=== PATIENT | male | born 1955 | race Caucasian/White ===

== ENCOUNTER 2017-02-08 08:05 | Emergency (ER) | payer OTHER ==
[~2017-02-08] VITALS: Ht 185.4 cm; Wt 125.0 kg
[~2017-02-08 08:05] MED LIST: ACTOPLUS MET PO; ACTOPLUS MET1 TABLE1 PO; ACTOPLUS MET1 TABLET PO; ACTOS15 MG PO; AMARYL1 MG PO; ASPIR-LOW81 MG PO; DIOVAN HCT 31 TABLET PO; EFFEXOR XR150 MG PO; FENOFIBRATE160 M1 PO; GLIPIZIDE5 M1 PO; HUMULIN R100 UNITS/; HUMULIN R100 UNITS/ SC; LANTUS 10100 UNITS/ SC; LANTUS 10100 UNITS/ SQ; LANTUS 3 M100 UNITS/ SC; LEXAPRO10 MG PO; LOVAZA1 GM PO; MECLIZINE HCL25 MG PO; METFORMIN HCL1000 MG PO; NEURONTIN100 MG; NEURONTIN100 MG PO; NEURONTIN300 MG PO; NORVASC5 MG PO; Neurontin PO; PRAVACHOL20 MG PO; PRILOSEC40 MG PO; PROTONIX40 MG PO; PROZAC40 MG PO; Protonix PO; TRILIPIX135 MG PO; VENLAFAXINE HC150 MG PO; VIAGRA50 MG PO; WELCHOL625 MG PO; WELLBUTRIN SR150 MG PO; ZESTRIL40 MG PO
[2017-02-08 08:13] VITALS: BP 145/84
== END 2017-02-08 09:39 | disposition home or self-care (01) ==
LOC: EME 08:05
DX: M25.562 Pain in left knee (principal); M25.462 Effusion, left knee; Z96.651 Presence of right artificial knee joint; Z87.891 Personal history of nicotine dependence; I10 Essential (primary) hypertension; E11.9 Type 2 diabetes mellitus without complications
CPT/HCPCS: 73564; 99281; 99284

== ENCOUNTER 2017-11-09 02:20 | Observation (INO) | payer OTHER ==
[~2017-11-09] VITALS: Ht 185.4 cm; Wt 118.3 kg
[~2017-11-09 02:20] MED LIST changes: -LEXAPRO10 MG PO; +LEXAPRO20 MG PO
[2017-11-09 02:44] LABS: HEMATOCRIT 36.3 % (38.0-50.0); HEMOGLOBIN 11.8 G/DL (12.5-16.6); MCH 25.3 PG (29.0-34.0); MCHC 32.5 G/DL (30.0-36.0); MCV 77.7 FL (86-99); PLATELET COUNT 101 K/uL (156-360); RBC DIS.WIDTH-CV 14.8 % (11.8-14.6); RBC DIS.WIDTH-SD 40.9 % (39-53); RED BLOOD COUNT 4.67 M/uL (4.00-5.50); WHITE BLOOD COUNT 3.5 K/uL (4.1-10.2)
[2017-11-09 02:56] LABS: CHLORIDE 106 mEq/L (99-109); POTASSIUM 4.2 mEq/L (3.7-5.4); SODIUM 138 mEq/L (136-147)
[2017-11-09 02:58] LABS: GLUCOSE 256 mg/dL (70-99)
[2017-11-09 03:02] LABS: CREATININE 1.5 mg/dL (0.6-1.3); GFR ESTIMATE (CALCULATED) 51 mL/min/ (58.99-99999)
[2017-11-09 03:03] LABS: UREA NITROGEN (BUN) 29 mg/dL (9-23)
[2017-11-09 03:04] LABS: TROP-I INTERPRETATION NEGATIVE; TROPONIN-I 0.01 ng/mL (0.0-0.30)
[2017-11-09 06:17] LABS: ALBUMIN 4.1 g/dL (3.2-4.8)
[2017-11-09 06:20] LABS: TOTAL PROTEIN 7.5 g/dL (6.4-8.3)
[2017-11-09 06:21] LABS: TOTAL BILIRUBIN 0.4 mg/dL (0.0-1.0)
[2017-11-09 06:23] LABS: ALKALINE PHOSPHATASE 86 IU/L (3-129)
[2017-11-09 06:25] LABS: AST (GOT) 40 IU/L (2-34); DIRECT BILIRUBIN 0.2 mg/dL (0.0-0.3)
[2017-11-09 06:26] LABS: ALT (GPT) 77 IU/L (3-49); LIPASE 83 U/L (1.0-51.0)
[2017-11-09] MEDS ORDERED: HUMALOG100 UNIT/1 SC (09:03)
[2017-11-09] MEDS ORDERED: LEVEMIR100 UNIT/2 SC (09:04)
[2017-11-09] MEDS ORDERED: ABILIFY5 MG PO (09:05)
[2017-11-09] MEDS ORDERED: CYANOCOBALAM1000 MCG PO (09:05)
[2017-11-09] MEDS ORDERED: SYNTHROID125 MCG PO (09:05)
[2017-11-09] MEDS ORDERED: BUPROPION HCL150 M2 PO (09:05)
[2017-11-09 10:29] LABS: TROP-I INTERPRETATION NEGATIVE; TROPONIN-I < 0.01 ng/mL (0.0-0.30)
[2017-11-09 10:51] LABS: HDL CHOLESTEROL 36 MG/DL (Desirable>=40); LDL CHOLESTEROL 127 mg/dL (Desirable<100); NON-HDL CHOLESTEROL 175 mg/dL (Desirable<160); TOTAL CHOLESTEROL 211 mg/dL (Desirable<200); TRIGLYCERIDES 238 MG/DL (Normal: <150)
[2017-11-09 13:51] LABS: HEMOGLOBIN A1c (GLYCOHEMOGLOB) 11.7 % (Below 5.7)
[2017-11-09 15:18] VITALS: BP 173/77
[2017-11-09 15:53] LABS: TROP-I INTERPRETATION NEGATIVE; TROPONIN-I < 0.01 ng/mL (0.0-0.30)
[2017-11-09 20:00] VITALS: BP 144/69
[2017-11-10 00:30] VITALS: BP 135/64
[2017-11-10 05:15] VITALS: BP 163/75
[2017-11-10 05:40] VITALS: BP 163/75
[2017-11-10 07:45] VITALS: BP 147/77
[2017-11-10] MEDS ORDERED: ASPIR-LOW81 MG PO (09:00)
[2017-11-10] MEDS ORDERED: NORTRIPTYLINE H10 MG PO (09:02)
== END 2017-11-10 11:13 | disposition home or self-care (01) ==
LOC: EME 02:20 → EDOF 07:47 → 3EAST 07:47 → EDOF 07:47 → ENRESERV 07:52 → 5WEST 15:07 → ENRESERV 11-10 04:56 → 3EAST 11-10 05:28
PROVIDERS: Internal Medicine
DX: G43.809 Other migraine, not intractable, without status migrainosus (principal); E11.65 Type 2 diabetes mellitus with hyperglycemia; I65.23 Occlusion and stenosis of bilateral carotid arteries; Z79.4 Long term (current) use of insulin; D61.818 Other pancytopenia; K74.60 Unspecified cirrhosis of liver; I10 Essential (primary) hypertension; E11.40 Type 2 diabetes mellitus with diabetic neuropathy, unspecified; Z87.891 Personal history of nicotine dependence; Z83.3 Family history of diabetes mellitus; Z88.5 Allergy status to narcotic agent; I27.20 Pulmonary hypertension, unspecified
CPT/HCPCS: 70450; 70551; 71046; 80048; 80061; 80076; 82948; 83036; 83690; 84484; 85027; 93005; 93306; 93880; 99281; 99285; G0378; J1650; J1815; J2060; J7030